=== PATIENT | female | born 1995 | race Caucasian/White ===

== ENCOUNTER 2017-11-03 12:50 | Emergency (ER) | payer OTHER ==
[2017-11-03] MEDS: TETRACAINE 0.5% OPHTH SOLN 4ML OD (15:04)
[2017-11-03] MEDS: FLUORESCEIN OPHTH 1 MG STRIP OD (15:23)
[2017-11-03] MEDS: ERYTHROMYCIN OPHTH OINT OD (15:50)
== END 2017-11-03 15:58 | disposition home or self-care (01) ==
LOC: M ED 12:50
DX: O99.89 Other specified diseases and conditions complicating pregnancy, childbirth and the puerperium (principal); S05.01XA Injury of conjunctiva and corneal abrasion without foreign body, right eye, initial encounter; W22.8XXA Striking against or struck by other objects, initial encounter; Y92.89 Other specified places as the place of occurrence of the external cause; Z3A.01 Less than 8 weeks gestation of pregnancy
CPT/HCPCS: 99283

== ENCOUNTER 2018-05-20 09:15 | Inpatient (IN) | payer OTHER ==
[2018-05-20] MEDS ORDERED: ONDANSETRON 4MG/2ML VIAL (J2405) IV (11:30)
[2018-05-20] MEDS: LR 1,000 ML IV ×3 (11:56→21:11)
[2018-05-20 12:14] LABS: HEMATOCRIT 34.3 % (36.0-47.0); MEAN CORPUSCULAR HEMOGLOBIN 31.6 pg (27.0-33.0); MEAN CORPUSCULAR VOLUME 90.3 fl (80.0-96.0); PLATELET COUNT, AUTOMATED 219 10^3/uL (150-450); RED CELL DISTRIBUTION WIDTH 12.3 % (11.5-14.5); WHITE BLOOD COUNT 9.5 10^3/uL (4.0-10.0)
[2018-05-20] MEDS: PENICILLIN G POTASSIUM IV 5 MU in D5W MINI-BAG PLUS 100 ML IV (12:18)
[2018-05-20] MEDS: BETAMETHASONE SOLUSPAN 6MG/ML INJ 5ML (J0702) IM (12:24)
[2018-05-20] MEDS: OXYTOCIN DRIP 30 UNITS in APPROPRIATE DILUENT 1 EA IV (12:35)
[2018-05-20] MEDS: PENICILLIN G POTASSIUM IV 2.5 MU in APPROPRIATE DILUENT 1 EA IV ×2 (16:14→20:14)
[2018-05-20] MEDS: BUTORPHANOL 2 MG/ML INJ (J0595) IV (21:11)
[2018-05-20] MEDS: PROMETHAZINE INJ 25 MG/ML VIAL (J2550) IV (21:11)
[2018-05-20] MEDS ORDERED: FENTANYL 2MCG/ML ROPIVACAINE 0.2% IN 0.9% NACL 200ML IVBAG As Ordered (23:57)
[2018-05-21] MEDS: PENICILLIN G POTASSIUM IV 2.5 MU in APPROPRIATE DILUENT 1 EA IV ×2 (00:02→04:27)
[2018-05-21] MEDS ORDERED: EPIDURAL COMMENT XX (00:45)
[2018-05-21] MEDS ORDERED: NALOXONE INJ 0.4 MG/1 ML VIAL (J2310) IV ×3 (00:45→06:09)
[2018-05-21] MEDS ORDERED: ePHEDrine SULFATE 25 MG/5 ML(5MG/ML) SYRINGE IV (00:45)
[2018-05-21] MEDS ORDERED: diphenhydrAMINE INJ 50MG/ML VIAL (J1200) IV (00:45)
[2018-05-21] MEDS ORDERED: FENTANYL/ROPIVACAINE/NACL BAG 200 ML EPIDURAL (00:45)
[2018-05-21] MEDS ORDERED: REFRIGERATOR IV KEYS XX (00:45)
[2018-05-21] MEDS ORDERED: EPIDURAL/PCA KEYS XX (00:45)
[2018-05-21] MEDS ORDERED: ONDANSETRON 4MG/2ML VIAL (J2405) IV ×4 (00:45→07:30)
[2018-05-21] MEDS ORDERED: ceFAZolin 2 GM/D5W 50 ML IV BAG (J0690 PER 500MG) As Ordered (05:20)
[2018-05-21] MEDS ORDERED: AZITHROMYCIN INJ 500MG VIAL (J0456) As Ordered (05:21)
[2018-05-21] MEDS ORDERED: BICITRA 30ML SOLN UDC As Ordered (05:22)
[2018-05-21] MEDS: AZITHROMYCIN INJ 500 MG, VIAL MATE ADAPTER 1 EACH in D5W 250 ML IV (05:37)
[2018-05-21] MEDS ORDERED: BICITRA 30ML SOLN UDC PO (05:45)
[2018-05-21] MEDS ORDERED: MORPHINE PRES-FREE INJ 10 MG/10 ML VIAL (J2274) As Ordered (05:59)
[2018-05-21] MEDS ORDERED: OXYTOCIN INJ 10 UNITS/ML VIAL (J2590) As Ordered (05:59)
[2018-05-21] MEDS ORDERED: LIDOCAINE PRES-FREE 2% 10ML AMP As Ordered (05:59)
[2018-05-21] MEDS ORDERED: ONDANSETRON 4MG/2ML VIAL (J2405) As Ordered (06:06)
[2018-05-21] MEDS ORDERED: KETOROLAC 60 MG/2 ML VIAL (J1885) As Ordered (06:07)
[2018-05-21] MEDS ORDERED: NALBUPHINE HCL 10 MG/ML AMP (J2300) IV ×2 (06:09→07:30)
[2018-05-21] MEDS ORDERED: METOCLOPRAMIDE INJ 10MG/2ML VIAL (J2765) IV ×2 (06:09→07:30)
[2018-05-21 06:29] LABS: CORD GAS ABE A -3.2; CORD GAS ABE V -2.6; CORD GAS HCO3 A 24.7 MEQ/L; CORD GAS HCO3 V 24.6 MEQ/L; CORD GAS O2 SAT A 47.3 %; CORD GAS O2 SAT V 64.4 %; CORD GAS PCO2 A 55.1 mmHg; CORD GAS PCO2 V 51.4 mmHg; CORD GAS PH A 7.269 UNITS; CORD GAS PH V 7.298 UNITS; CORD GAS PO2 A 21.9 mmHg; CORD GAS SBC A 20.6 MEQ/L; CORD GAS SBC V 21.5 MEQ/L; CORD GAS TCO2 A 26.4 MEQ/L; CORD GAS TCO2 V 26.2 MEQ/L
[2018-05-21] MEDS ORDERED: PERCOCET 5MG/325MG TAB PO ×2 (06:45→07:30)
[2018-05-21] MEDS ORDERED: DOCUSATE SODIUM 100 MG CAP PO (06:45)
[2018-05-21] MEDS: LR 1,000 ML IV (07:30)
[2018-05-21] MEDS ORDERED: fentaNYL 100 MCG/2 ML INJECTION (J3010) IV (07:30)
[2018-05-21] MEDS ORDERED: MEPERIDINE INJ 25 MG/ML VIAL (J2175) IV (07:30)
[2018-05-21] MEDS: PRENATAL VITAMINS CHEWABLE TABLET PO (09:00)
[2018-05-21] MEDS: KETOROLAC 30 MG/ML VIAL (J1885) IV ×2 (12:00→18:00)
[2018-05-22] MEDS: KETOROLAC 30 MG/ML VIAL (J1885) IV
[2018-05-22 07:48] LABS: HEMATOCRIT 28.8 % (36.0-47.0); MEAN CORPUSCULAR HEMOGLOBIN 30.9 pg (27.0-33.0); MEAN CORPUSCULAR VOLUME 93.8 fl (80.0-96.0); PLATELET COUNT, AUTOMATED 229 10^3/uL (150-450); RED BLOOD COUNT 3.07 10^6/uL (4.00-5.40); RED CELL DISTRIBUTION WIDTH 12.5 % (11.5-14.5); WHITE BLOOD COUNT 13.7 10^3/uL (4.0-10.0)
[2018-05-22 08:03] LABS: HEMOGLOBIN 9.5 g/dl (12.0-15.5)
[2018-05-22] MEDS: IBUPROFEN 800 MG TAB PO ×3 (08:52→23:41)
[2018-05-22] MEDS: PRENATAL VITAMINS CHEWABLE TABLET PO (08:52)
[2018-05-22] MEDS ORDERED: INFLUENZA QUADRIVALENT PF VACCINE 0.5ML SYRINGE (90686) IM (11:00)
[2018-05-22] MEDS: RHOGAM 300 MCG (1500 IU) INJ (J2790) IM (16:01)
[2018-05-22] MEDS: MEASLES,MUMPS,RUBELLA VACCINE INJ (MMR-II) (90707) SC (16:02)
[2018-05-23] MEDS: PRENATAL VITAMINS CHEWABLE TABLET PO (08:47)
[2018-05-23] MEDS: IBUPROFEN 800 MG TAB PO (08:47)
[2018-05-23] MEDS: INFLUENZA QUADRIVALENT PF VACCINE 0.5ML SYRINGE (90686) IM (11:13)
== END 2018-05-23 14:30 | disposition home or self-care (01) | DRG 766 ==
LOC: M LDO 09:15 → M LDI 11:30 → M OBS 05-21 08:10
PROVIDERS: Obstetrics & Gynecology
PROC: 10D00Z1 Extraction of Products of Conception, Low, Open Approach (ICD-10-PCS; principal; 2018-05-21 05:45)
DX: O42.113 Preterm premature rupture of membranes, onset of labor more than 24 hours following rupture, third trimester (principal); Z3A.35 35 weeks gestation of pregnancy; O76 Abnormality in fetal heart rate and rhythm complicating labor and delivery; Z37.0 Single live birth